=== PATIENT | male | born 1950 | race Caucasian/White ===

== ENCOUNTER 2017-02-12 10:30 | Outpatient (RCR) | payer BC ==
[~2017-02-12 10:30] MED LIST: ADIPEX-P37.5 M1 PO; ASPI325T6 PO; FISH OIL1000 MG PO; FLOMAX 0.40.4 MG/CAP PO; NATURAL E400 IU PO; NORCO 325 MG-7.1 TAB PO; ROXICODONE 55 MG/TAB PO; SENOKOT8.6 MG PO; TYLENOL 500MG500 MG PO
== END 2017-02-15 ==
LOC: WSOT
DX: Z47.89 Encounter for other orthopedic aftercare (principal); Z96.691 Finger-joint replacement of right hand

== ENCOUNTER 2019-08-31 14:30 | Outpatient (RCR) | payer BC | END 2019-10-14 15:55 | disposition home or self-care (01) | LOC: WSOT 14:30 | DX: M79.645 Pain in left finger(s) (principal) ==

== ENCOUNTER 2019-12-20 09:00 | Outpatient (RCR) | payer BC | END 2020-01-17 | disposition home or self-care (01) | LOC: WSOT | DX: Z98.890 Other specified postprocedural states (principal) ==

== ENCOUNTER → 2021-09-30 | Outpatient (CLI) | payer BC | LOC: COL.RAD 08:45 | DX: M25.551 Pain in right hip (principal) | CPT/HCPCS: J3301; Q9967 ==

== ENCOUNTER 2021-10-23 08:14 | Day surgery (SDC) | payer BC ==
[~2021-10-23] VITALS: Ht 167.6 cm; Wt 78.3 kg
[2021-10-23] MEDS ORDERED: PROSCAR 5MG5 MG PO (08:48)
[2021-10-23] MEDS ORDERED: COZAAR 25MG25 MG/TAB PO (08:49)
[2021-10-23] MEDS ORDERED: VITAMIN D 50,1.25 MG PO (08:49)
[2021-10-23] MEDS ORDERED: VITAMIN C500 MG PO (08:49)
[2021-10-23] MEDS ORDERED: KRILL OIL 5001 EACH PO (08:50)
[2021-10-23] MEDS ORDERED: MOTRIN 600600 MG/TAB PO (08:50)
[2021-10-23 09:08] VITALS: BP 131/84; PULSE 70; TEMP 97.7
[2021-10-23] MEDS ORDERED: NORCO 325 MG-51 TAB PO (12:19)
[2021-10-23 13:10] VITALS: BP 124/82; PULSE 75; TEMP 97.4
--- NOTE | 2021-10-23 13:10 | NUR ---
PT TO BAY 7 PER CART FROM PACU. REPORT RECEIVED. PT RESTING COMFORTABLY. CALL LIGHT WITHIN REACH. PT TOLERATING WATER. DENIES ANY NEEDS AT THIS TIME.
[2021-10-23 13:25] VITALS: BP 116/74; PULSE 68
--- NOTE | 2021-10-23 13:25 | NUR ---
PT TOLERATING OJ WITHOUT DIFFICULTY. DENIES ANY NEEDS AT THIS TIME.
[2021-10-23 13:31] VITALS: TEMP 97.8
[2021-10-23 13:40] VITALS: BP 121/80; PULSE 72
[2021-10-23 13:55] VITALS: BP 120/76; PULSE 65
--- NOTE | 2021-10-23 15:05 | NUR ---
1410-DISCHARGE EDUCATION COMPLETED WITH PT. VERBALIZED UNDERSTANDING OF HOME AND FOLLOW UP CARE. ALL QUESTIONS ANSWERED. DISCHARGE PAPERWORK GIVEN TO PT. 1420-IV DC'D AT THIS TIME. 1430-PT AWAITING FOR HIS RIDE. 1505-PT OFF UNIT PER WHEELCHAIR. PT DISCHARGED TO HOME WITH PER PERSONAL VEHICLE.
== END 2021-10-23 15:05 | disposition home or self-care (01) ==
LOC: SDCO 08:14
DX: K40.90 Unilateral inguinal hernia, without obstruction or gangrene, not specified as recurrent (principal)
CPT/HCPCS: C1781; J0690; J0694; J1100; J1170; J1885; J2250; J2405; J2704; J3010; J7120

== ENCOUNTER → 2023-06-11 | Outpatient (CLI) | payer BC ==
[~2023-06-11] MED LIST changes: +COZAAR 25MG25 MG/TAB PO; +KRILL OIL 5001 EACH PO; +MOTRIN 600600 MG/TAB PO; +NORCO 325 MG-51 TAB PO; +PROSCAR 5MG5 MG PO; +VITAMIN C500 MG PO; +VITAMIN D 50,1.25 MG PO
== END ==
LOC: COL.RAD 08:58
DX: Z47.1 Aftercare following joint replacement surgery (principal); M25.551 Pain in right hip; Z96.641 Presence of right artificial hip joint
CPT/HCPCS: A9503-JZ